=== PATIENT | female | born 1980 | race Caucasian/White ===

== ENCOUNTER 2016-12-27 17:53 | Emergency (ER) | payer OTHER ==
[~2016-12-27] VITALS: Ht 167.6 cm; Wt 49.9 kg
[~2016-12-27 17:53] MED LIST: AMOXICILLIN500 MG PO; ANAPROX DS550 MG PO; DEPO PROVER150 MG/M1 IM; MOTRIN600 MG PO; PREDNICOT20 MG PO; Tobradex 0.3-0.15 ML OPH; ULTRAM50 MG PO; ZITHROMAX Z PA250 MG PO; ZYRTEC10 MG PO
[2016-12-27] MEDS ORDERED: NAPROSYN500 MG PO (18:06)
== END 2016-12-27 18:45 | disposition home or self-care (01) ==
LOC: ED 17:53
DX: S60.212A Contusion of left wrist, initial encounter (principal); W22.8XXA Striking against or struck by other objects, initial encounter; Y93.9 Activity, unspecified; Y92.9 Unspecified place or not applicable; Y99.9 Unspecified external cause status

== ENCOUNTER → 2017-01-06 | Outpatient (CLI) | payer OTHER ==
[~2017-01-06] MED LIST changes: +NAPROSYN500 MG PO
== END | disposition home or self-care (01) ==
LOC: US 13:45
DX: R10.2 Pelvic and perineal pain (principal)

== ENCOUNTER → 2017-07-20 | Outpatient (CLI) | payer OTHER ==
[2017-07-20 11:33] LABS: BASO # 0.1 10*3/uL (0.0-0.1); BASO % 1.4 % (0.0-1.0); EOS # 0.3 10*3/uL (0.0-0.4); EOS % 4.1 % (1.0-4.0); HEMATOCRIT 42.4 % (37.0-47.0); HEMOGLOBIN 14.2 g/dl (12.0-16.0); LYMPH # 2.9 10*3/uL (1.3-4.4); LYMPH % 36.3 % (27.0-41.0); MEAN CELL VOLUME 88.7 fl (81.0-99.0); MEAN CORPUSCULAR HGB 29.7 pg (27.0-31.0); MEAN CORPUSCULAR HGB CONC 33.5 g/dl (33.0-37.0); MEAN PLATELET VOLUME 11.2 fl (9.6-12.3); MONO # 0.7 10*3/uL (0.1-1.0); MONO % 8.2 % (3.0-9.0); NEUT % 49.8 % (47.0-73.0); PLATELET COUNT AUTOMATED 274 10*3/uL (130-400); RED BLOOD COUNT 4.78 10*6/uL (4.10-5.10); RED CELL DISTRI WIDTH 13.1 % (0-14.5)
== END | disposition home or self-care (01) ==
LOC: LAB 10:09
PROVIDERS: Obstetrics & Gynecology
DX: Z30.09 Encounter for other general counseling and advice on contraception (principal)

== ENCOUNTER → 2017-07-26 | Day surgery (SDC) | payer OTHER ==
[~2017-07-26] VITALS: Ht 167.6 cm; Wt 49.9 kg
--- NOTE | ~2017-07-26 | O ---
[place], [place] OPERATIVE NOTE NAME: MIKE JONES [facility] #: [id number] UNIT #: [id number] ROOM: DOCTOR: CLAIRE CORTES MD BIRTHDATE: [birth year] DOS: 07/26/2017 PRIMARY CARE PHYSICIAN: Dr. Pickard PREOPERATIVE DIAGNOSIS: Desires fertility termination. POSTOPERATIVE DIAGNOSIS: Desires fertility termination. OPERATION: Laparoscopic bilateral salpingectomy. SURGEONS: Dr. Claire Cortes and Dr. Altman. ANESTHESIA: General. ESTIMATED BLOOD LOSS: Minimal, replaced with IV fluids and Toradol. COMPLICATIONS: There were no complications. The patient's condition to recovery stable. OPERATIVE SUMMARY: The patient was taken to the operating room in supine position, general anesthesia, endotracheal intubation, lithotomy position, prepped and draped in routine manner. Catheter was placed to straight drain. The cervix was grasped with a tenaculum and a cervical manipulator placed. Infraumbilical, suprapubic and right lower quadrant incisions were made. Through the infraumbilical incision, a 5 mm trocar sleeve and laparoscope were placed followed by insufflation with CO2, followed by placement of the 5 mm trocar and sleeve through the right lower quadrant incision and an 8 mm trocar and sleeve through the suprapubic incision. Examination of the pelvis revealed the uterus to be normal in size, configuration and mobility. The anterior and posterior cul-de-sacs were normal. All supporting structures were normal. The ovaries were normal. Fallopian tubes were normal except for them both being extremely short. Panoramic view of the liver and the appendix, gallbladder and upper abdomen was all completely within normal limits. Once this survey was completed, using a LigaSure device, we removed each fallopian tube. The left tube was somewhat difficult to remove because of the relative paucity of tubal material, but we did remove what we could and then we fulgurated along the top of the mesosalpinx. Once we had completed this, we noted good hemostasis. We noted that the ovaries were normal and otherwise, the pelvis was within normal limits. We removed our 2 lower abdominal trocar sleeves and instrumentation and noting no excessive anterior abdominal bleeding, CO2 was allowed to escape, followed by removal of the infraumbilical trocar, sleeve and laparoscope. Each incision was closed with subcuticular 3-0 Monocryl suture. Steri-Strips placed and dressings placed. Instrumentation was removed from the vagina and noting no excessive vaginal bleeding, the patient was cleaned off, taken out of lithotomy position, awakened, extubated, and transferred to recovery in satisfactory condition having had a small but a clear amount of urine output. Good hemostasis, stable sponge and instrument count, and stable vital signs. [place], [place] OPERATIVE NOTE NAME: MIKE JONES UNIT #: [id number] ROOM: DOCTOR: CLAIRE CORTES MD BIRTHDATE: [birth year] CLAIRE CORTES MD CM:OPRECORD:OPERATIVE NOTE [id number] ORTEGA CORTES MD 07/26/17 1302 interface
--- NOTE | ~2017-07-26 | WRIGHTHP ---
[place], [place] PATIENT HISTORY AND PHYSICAL EXAM NAME: MIKE JONES [facility] #: [id number] UNIT #: [id number] ROOM: DOCTOR: CLAIRE CORTES MD BIRTHDATE: [birth year] DOS: 07/26/2017 DATE OF ANTICIPATED SURGERY: 07/26/2017 HISTORY OF PRESENT ILLNESS: This very pleasant 36-year-old white female who is a 2, para 2, 2 C-sections who presented with last menstrual period unknown due to the use of Depo-Provera, who did present on 06/01/2017 having had her last annual by Dr. Pichardo in October 2013, but having had consistent checkups and indicated Pap smears per Dr. Pickard in the meantime with her last negative Pap February 2017 who desired tubal ligation. We had an excellent discussion on 06/01/2017 for laparoscopic bilateral salpingectomy and the new recommendations for performing bilateral salpingectomy for the tubal, for future reduction of ovarian cancer. The risks and benefits, indications, potential complications, and alternatives of the procedure were reviewed, understanding the stated and she did sign the consent in preparation for the procedure. Once the insurance stipulations were satisfied, the patient was to be scheduled and has been scheduled on 07/26/2017 for laparoscopic bilateral salpingectomy. PAST MEDICAL HISTORY: Reveals 2 pregnancies and 2 sections. She is using Depo-Provera for control and her last Pap was negative February 2017. SOCIAL HISTORY: She does smoke about a pack a day, does not drink. ALLERGIES: No known allergies. MEDICATIONS: She is taking no medications other than the Depo-Provera. She has had no other significant illnesses, operations or injuries other than what have been described. REVIEW OF SYSTEMS: Stable. FAMILY HISTORY: Reveals her father to be from gastric CA and her mother has diabetes. PHYSICAL EXAMINATION: GENERAL: Reveals a very pleasant white female. VITAL SIGNS: She is 5 feet 6, 119 pounds, BMI is 19.2. Blood pressure 102/58 and she is in no significant distress. Her oxygen sat was normal and she has no sleep apnea history. HEENT: Pupils equal, round, and reactive to light. EOMI. There is no scleral icterus. NECK: C-spine is soft and supple, there is no meningismus. There is no cervical lymphadenopathy. LUNGS: Clear to auscultation bilaterally. There are no rales, wheezes or rhonchi. HEART: Regular rate and rhythm, no murmurs, clicks, rubs or gallops. BREASTS: ABDOMEN: Soft, nontender, nondistended. There are bowel sounds in all four [place], [place] PATIENT HISTORY AND PHYSICAL EXAM [id number] UNIT #: [id number] ROOM: DOCTOR: CLAIRE CORTES MD BIRTHDATE: [birth year] quadrants. No rebound or guarding. EXTREMITIES: There is no peripheral cyanosis or edema. No focal swelling or erythema. NEUROLOGIC: The patient moves all four extremities with 5/5 strength. Cranial nerves II - XII are intact. Normal gait. Alert and oriented GENITOURINARY: External genitalia, vagina, cervix normal. Uterus is anteverted and flexed, normal size, configuration, nontender, mobile. Adnexa negative. RECTAL: Deferred. ASSESSMENT: The patient ____ desires fertility termination. PLAN: The patient will undergo a laparoscopic bilateral salpingectomy on 07/26/2017. CLAIRE CORTES MD CM:HISPHYS:PATIENT HISTORY AND PHYSICAL EXAMINATION [id number] ORTEGA CORTES MD 07/22/17 0610 interface
[2017-07-26 09:40] VITALS: BP 90/50
[2017-07-26 12:23] VITALS: BP 99/49
[2017-07-26 12:38] VITALS: BP 103/51
[2017-07-26 12:55] VITALS: BP 92/51
[2017-07-26 13:10] VITALS: BP 91/53
[2017-07-26 13:25] VITALS: BP 92/50
== END | disposition home or self-care (01) ==
LOC: SDC 07-01 10:15
DX: Z30.2 Encounter for sterilization (principal); F17.210 Nicotine dependence, cigarettes, uncomplicated; Z98.890 Other specified postprocedural states

== ENCOUNTER → 2020-01-05 | Outpatient (CLI) | payer OTHER ==
[2020-01-05 11:18] LABS: HEMATOCRIT 43.5 % (37.0-47.0); MEAN CELL VOLUME 87.9 fl (81.0-99.0); MEAN CORPUSCULAR HGB 29.5 pg (27.0-31.0); MEAN CORPUSCULAR HGB CONC 33.6 g/dl (33.0-37.0); MEAN PLATELET VOLUME 11.3 fl (9.6-12.3); RED BLOOD COUNT 4.95 10*6/uL (4.10-5.10); RED CELL DISTRI WIDTH 13.2 % (0-14.5); WHITE BLOOD COUNT 15.4 10*3/uL (4.8-10.8)
[2020-01-05 11:39] LABS: ALKALINE PHOSPHATASE 93 U/L (45-117); BUN 11 mg/dl (7-24); CHLORIDE 104 mmol/L (98-107); CHOLESTEROL 183 mg/dL (<200); CREATININE 0.74 mg/dL (0.55-1.02); HDL CHOLESTEROL 70 mg/dl (40-60); LDL CHOLESTEROL 100 mg/dL (9-159); POTASSIUM 4.2 mmol/L (3.5-5.1); SGOT/AST 7 IU/L (3-35); SGPT/ALT 13 U/L (12-78); SODIUM 139 mmol/L (136-145); TOTAL PROTEIN 7.8 gm/dL (6.4-8.2); TRIGLYCERIDES 64 mg/dl (<150); VLDL CHOLESTEROL 13 mg/dL (6-40)
== END | disposition home or self-care (01) ==
LOC: LAB 10:36
PROVIDERS: Family Medicine
DX: E55.9 Vitamin D deficiency, unspecified (principal); R06.02 Shortness of breath; E78.00 Pure hypercholesterolemia, unspecified; F17.200 Nicotine dependence, unspecified, uncomplicated

== ENCOUNTER → 2020-01-12 | Outpatient (CLI) | payer OTHER | END | disposition home or self-care (01) | LOC: CT 08:48 | DX: J98.11 Atelectasis (principal); R91.1 Solitary pulmonary nodule; R91.8 Other nonspecific abnormal finding of lung field ==

== ENCOUNTER → 2020-01-18 | Outpatient (CLI) | payer OTHER ==
[2020-01-18 14:03] LABS: HEMATOCRIT 41.3 % (37.0-47.0); MEAN CORPUSCULAR HGB 29.8 pg (27.0-31.0); MEAN CORPUSCULAR HGB CONC 33.2 g/dl (33.0-37.0); MEAN PLATELET VOLUME 11.3 fl (9.6-12.3); RED BLOOD COUNT 4.59 10*6/uL (4.10-5.10); RED CELL DISTRI WIDTH 13.3 % (0-14.5); WHITE BLOOD COUNT 9.2 10*3/uL (4.8-10.8)
== END | disposition home or self-care (01) ==
LOC: LAB 13:11
PROVIDERS: Family Medicine
DX: D72.829 Elevated white blood cell count, unspecified (principal)

== ENCOUNTER → 2020-01-29 | Outpatient (CLI) | payer OTHER ==
[2020-01-29 13:36] LABS: HEMATOCRIT 41.7 % (37.0-47.0); MEAN CELL VOLUME 91.4 fl (81.0-99.0); MEAN CORPUSCULAR HGB 29.4 pg (27.0-31.0); MEAN CORPUSCULAR HGB CONC 32.1 g/dl (33.0-37.0); MEAN PLATELET VOLUME 11.5 fl (9.6-12.3); RED BLOOD COUNT 4.56 10*6/uL (4.10-5.10); RED CELL DISTRI WIDTH 13.7 % (0-14.5); WHITE BLOOD COUNT 5.9 10*3/uL (4.8-10.8)
== END | disposition home or self-care (01) ==
LOC: LAB 13:22
PROVIDERS: Family Medicine
DX: D72.829 Elevated white blood cell count, unspecified (principal)